=== PATIENT | female | born 1985 | race Hispanic/Latino ===

== ENCOUNTER 2017-06-05 23:08 | Emergency (ER) | payer MEDICAID, OTHER ==
[2017-06-05 23:52] VITALS: BMI 23.1
--- NOTE | 2017-06-06 00:15 | ED PDOC ---
Arrival/HPI - General Chief Complaint: Abdominal Pain Time Seen by Provider: 06/06/17 00:09 Historian: Patient - History of Present Illness Narrative History of Present Illness (Text): 06/06/17 00:13 Cricket Velez is a 32 year old female who presents to the Emergency department complaining of lower abdominal pain since yesterday. Patient states she recently had a miscarriage 2 weeks ago and was given medication by her OBGYN to assist with the miscarriage. Patient reports she was informed her Beta- HCG were trending down. Patient states yesterday she began experiencing worsening lower abdominal pressure but denies any vaginal bleeding or discharge. Patient denies any fever, chills, chest pain, shortness of breath, nausea, vomiting, diarrhea, headache, dizziness, or any other complaints. Patient states she has not taken any medication for pain. Time/Duration: Other (yesterday) Symptom Onset: Gradual Symptom Course: Worsening Quality: Pressure Activities at Onset: Light Context: Home Past Medical History - Provider Review Nursing Documentation Reviewed: Yes - Cardiac Hx Cardiac Disorders: No - Pulmonary Hx Respiratory Disorders: No - Neurological Hx Neurological Disorder: No - HEENT Hx HEENT Disorder: No - Renal Hx Renal Disorder: No - Endocrine/Metabolic Hx Endocrine Disorders: No - Hematological/Oncological Hx Blood Disorders: No - Integumentary Hx Dermatological Disorder: No - Musculoskeletal/Rheumatological Hx Musculoskeletal Disorders: No - Gastrointestinal Hx Gastrointestinal Disorders: No - Genitourinary/Gynecological Hx Genitourinary Disorders: No - Psychiatric Hx Psychophysiologic Disorder: No Hx Substance Use: No - Anesthesia Hx Anesthesia: No Family/Social History - Physician Review Nursing Documentation Reviewed: Yes Family/Social History: Unknown Family HX Smoking Status: Current Some Days Smoker Hx Alcohol Use: Yes Frequency of alcohol use: Socially Hx Substance Use: No Allergies/Home Meds Allergies/Adverse Reactions: Allergies No Known Allergies Allergy (Verified 06/05/17 23:52) Review of Systems - Physician Review All systems were reviewed & negative as marked: Yes - Review of Systems Constitutional: Normal. absent: Fevers Eyes: Normal ENT: Normal Respiratory: Normal. absent: SOB, Cough Cardiovascular: Normal. absent: Chest Pain Gastrointestinal: Abdominal Pain. absent: Diarrhea, Nausea, Vomiting Genitourinary Female: Normal. absent: Dysuria, Frequency, Hematuria, Urine Output Changes Musculoskeletal: Normal. absent: Back Pain, Neck Pain Skin: Normal. absent: Rash Neurological: Normal. absent: Headache, Dizziness Endocrine: Normal Hemo/Lymphatic: Normal Psychiatric: Normal Physical Exam Vital Signs Reviewed: Yes Vital Signs Temp Pulse Resp BP Pulse Ox 06/06/17 04:15 98.2 F 88 18 107/60 98 06/06/17 02:38 98.3 F 73 17 102/57 L 97 06/06/17 00:07 98.4 F 76 17 107/46 L 100 Temperature: Afebrile Blood Pressure: Normal Pulse: Regular Respiratory Rate: Normal Appearance: Positive for: Well-Appearing, Non-Toxic, Comfortable Pain Distress: None Mental Status: Positive for: Alert and Oriented X 3 - Systems Exam Head: Present: Atraumatic, Normocephalic Pupils: Present: PERRL Extroacular Muscles: Present: EOMI Conjunctiva: Present: Normal Mouth: Present: Moist Mucous Membranes Neck: Present: Normal Range of Motion Respiratory/Chest: Present: Clear to Auscultation, Good Air Exchange. No: Respiratory Distress, Accessory Muscle Use Cardiovascular: Present: Regular Rate and Rhythm, Normal S1, S2. No: Murmurs Abdomen: Present: Normal Bowel Sounds. No: Tenderness, Distention, Peritoneal Signs Back: Present: Normal Inspection Upper Extremity: Present: Normal Inspection. No: Cyanosis, Edema Lower Extremity: Present: Normal Inspection. No: Edema Neurological: Present: GCS=15, CN II-XII Intact, Speech Normal Skin: Present: Warm, Dry, Normal Color. No: Rashes Psychiatric: Present: Alert, Oriented x 3, Normal Insight, Normal Concentration Medical Decision Making ED Course and Treatment: 06/06/17 00:13 Impression: 32 year old female complaining of lower abdominal pressure since yesterday. Differential Diagnosis included but are not limited to: retained products of conception vs. ovarian cyst vs. UTI vs. abdominal pain Plan: -- US Transvaginal -- Labs, Beta-HCG -- UA -- Percocet -- Reassess and disposition Progress Notes: 06/06/17 03:45 Reviewed sono, US Transvaginal shows: Uterus/cervix: The uterus measures 8.5 x 4.2 x 6.1 cm. the uterus appears anteverted and possible retroflexed as seen on image 4 series 1. The endometrial stripe measures 9 mm. No myometrial mass. Right ovary: There is possible involuting right ovarian cyst measuring 3.6 x 2.1 x 3.0 cm. The right ovary measures 5.5 x 3.5 x 4.5 cm. Duplex assessment demonstrates presence of color Doppler signal and spectral Doppler waveform in right ovary. No torsion. Left ovary: The left ovary measures 3.4 x 2.1 x 3.3 cm. Duplex assessment demonstrates presence of color Doppler signal and spectral Doppler waveform in left ovary. No torsion. Free fluid: Small to moderate amount of free pelvic fluid. Bladder: Partially distended bladder. IMPRESSION: 1. There is possible involuting right ovarian cyst measuring 3.6 x 2.1 x 3.0 cm. this can represent functional cyst in view of patient's premenopausal status.Correlation with clinical evaluation and further workup or followup as recommended by patient's clinical data. 2. Small to moderate amount of free pelvic fluid. 3. The endometrial stripe measures 9 mm. No vascular flow was documented in the endometrium. Correlation with clinical data is recommended if retained products of conception are clinically suspected. 06/06/17 03:59 On reevaluation the patient feels better and is in no acute distress. I have discussed the results and plan with the patient, who expresses understanding. Patient given the opportunity to ask question, all questions were answered and there is agreement with the plan to discharge the patient home. Patient is stable for discharge. Patient was instructed to follow up with physician/clinic in 1-2 days or return if symptoms persist/worsen or new concerning symptoms arise. - Lab Interpretations Lab Results: 06/06/17 00:40 06/06/17 00:40 Lab Results 06/06/17 00:40: Beta HCG, Quant 453.13 H 06/06/17 00:40: Sodium 138, Potassium 3.9, Chloride 103, Carbon Dioxide 27, Anion Gap 12, BUN 15, Creatinine 0.8, Est GFR ( Amer) > 60, Est GFR (Non- Af Amer) > 60, Random Glucose 116 H, Calcium 9.6, Total Bilirubin 0.4, AST 42 H , ALT 71 H, Alkaline Phosphatase 64, Total Protein 7.5, Albumin 4.5, Globulin 3.0, Albumin/Globulin Ratio 1.5 06/06/17 00:40: WBC 14.2 H, RBC 4.34, Hgb 13.6, Hct 39.5, MCV 91.0, MCH 31.3, MCHC 34.4, RDW 12.3, Plt Count 296, MPV 9.1, Gran % 78.7 H, Lymph % (Auto) 14.0 L, [place] % (Auto) 4.4, Eos % (Auto) 2.6, Baso % (Auto) 0.3, Gran # 11.19 H, Lymph # 2.0, [place] # 0.6, Eos # 0.4, Baso # 0.04 06/06/17 00:05: Urine Color Yellow, Urine Appearance Sl cloudy, Urine pH 6.0, Ur Specific [place] >= 1.030, Urine Protein 30 H, Urine Glucose (UA) Negative, Urine Ketones Negative, Urine Blood Negative, Urine Nitrate Negative, Urine Bilirubin Negative, Urine Urobilinogen 0.2, Ur Leukocyte Esterase Negative, Urine RBC 0 - 2, Urine WBC 2 - 5, Ur Epithelial Cells 1 - 3, Urine Bacteria Small I have reviewed the lab results: Yes - RAD Interpretation Radiology Orders: 06/06/17 00:16 TRANSVAGINAL [US] 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 No Sleep Is patient sleeping during reassessment? No Presence of Pain Presence of Pain Yes Pain Scale Used Pain Scale Used Numeric Location Upper or Lower Lower Pain Location Body Site Abdomen Description Description Constant Intensity of Pain at present 8 Pain Behavior Facial Grimacing Aggravating Factors Changing Position Alleviating Factors/Management Position Change Techniques Alleviating Factors Medication - Scribe Statement The provider has reviewed the documentation as recorded by the Catiaibwang Pacheco Provider Scribe Attestation: All medical record entries made by the Scribe were at my direction and personally dictated by me. I have reviewed the chart and agree that the record accurately reflects my personal performance of the history, physical exam, medical decision making, and the department course for this patient. I have also personally directed, reviewed, and agree with the discharge instructions and disposition. Disposition/Present on Arrival - Present on Arrival Any Indicators Present on Arrival: No History of DVT/PE: No History of Uncontrolled Diabetes: No Urinary Catheter: No History of Decub. Ulcer: No History Surgical Site Infection Following: None - Disposition Have Diagnosis and Disposition been Completed?: Yes Diagnosis: Retained products of conception, Ovarian cyst Disposition: HOME/ ROUTINE Disposition Time: 04:00 Condition: GOOD Discharge Instructions (ExitCare): Ovarian Cyst (ED), Dilation and Curettage ( GEN) Prescriptions: Tramadol HCl [Ultram] 50 mg PO QID #8 tab Referrals: Marely Winston MD [Primary Care Provider] - Follow up with primary Forms: [facility] ([place]ian)
[2017-06-06] MEDS ORDERED: Oxycodone/Acetaminophen 5/325 mg Tab PO STA (00:16)
[2017-06-06 00:47] LABS: URINE BILIRUBIN NEGATIVE (NEGATIVE); URINE BLOOD NEGATIVE (NEGATIVE); URINE GLUCOSE (UA) NEGATIVE (NEGATIVE); URINE KETONE NEGATIVE (NEGATIVE); URINE LEUKOCYTE ESTERASE NEGATIVE Leu/uL (NEGATIVE); URINE PROTEIN 30 mg/dL (<30 mg/dL); URINE UROBILINOGEN 0.2 E.U./dL (<1 E.U./dL)
[2017-06-06 00:51] LABS: BASO # 0.04 K/mm3 (0.0-2.0); BASO % 0.3 % (0.0-3.0); EOS # 0.4 (0.0-0.7); EOS % 2.6 % (1.5-5.0); GRAN # 11.19 (1.4-6.5); GRAN % 78.7 % (50.0-68.0); HEMATOCRIT 39.5 % (36.0-48.0); MEAN CORPUSCULAR HEMOGLOBIN 31.3 pg (25.0-35.0); MEAN CORPUSCULAR HGB CONC 34.4 g/dl (31.0-37.0); MEAN PLATELET VOLUME 9.1 fl (7.0-11.0); MONO # 0.6 (0.1-0.6); MONO % 4.4 % (1.0-6.0); RED CELL DISTRIBUTION WIDTH 12.3 % (11.5-14.5); WHITE BLOOD COUNT 14.2 10^3/ul (4.5-11.0)
[2017-06-06 00:58] LABS: URINE APPEARANCE SL CLOUDY (CLEAR); URINE COLOR YELLOW (YELLOW)
[2017-06-06 01:00] LABS: ALB/GLOB RATIO 1.5 (1.1-1.8); ALKALINE PHOSPHATASE 64 U/L (38-126); ALT/SGPT 71 U/L (7-56); AST/SGOT 42 U/L (14-36); BILIRUBIN,TOTAL 0.4 mg/dL (0.2-1.3); BLOOD UREA NITROGEN 15 mg/dL (7-21); CALCIUM 9.6 mg/dL (8.4-10.5); CARBON DIOXIDE 27 mmol/L (21-33); CHLORIDE 103 mmol/L (98-107); GFR AFRICAN-AMERICAN > 60; GLUCOSE,RANDOM 116 mg/dL (70-110); POTASSIUM 3.9 mmol/L (3.6-5.0); SODIUM 138 mmol/L (132-148); TOTAL PROTEIN 7.5 g/dL (5.8-8.3)
[2017-06-06 01:00] LABS: URINE RBC 0 - 2 /hpf (0-2)
[2017-06-06 01:01] LABS: URINE BACTERIA SMALL (NEG)
--- NOTE | 2017-06-06 03:28 | US ---
EXAM: US Duplex Arterial/Venous of the Pelvis, Complete CLINICAL HISTORY: 32 years old, female; Pain; Pelvic pain; Additional info: R/O retained products TECHNIQUE: Real-time duplex ultrasound scan of the arterial and venous flow of the pelvis with color Doppler flow and spectral waveform analysis. Transabdominal and endovaginal images are submitted.Grayscale, color and spectral pulse Doppler images are submitted.A duplex/doppler ultrasound was performed specifically BOTH COLOR FLOW AND spectral Doppler analysis (waveforms) were performed and interpreted. COMPARISON: No relevant prior studies available. FINDINGS: Uterus/cervix: The uterus measures 8.5 x 4.2 x 6.1 cm. the uterus appears anteverted and possible retroflexed as seen on image 4 series 1. The endometrial stripe measures 9 mm. No myometrial mass. Right ovary: There is possible involuting right ovarian cyst measuring 3.6 x 2.1 x 3.0 cm. The right ovary measures 5.5 x 3.5 x 4.5 cm. Duplex assessment demonstrates presence of color Doppler signal and spectral Doppler waveform in right ovary. No torsion. Left ovary: The left ovary measures 3.4 x 2.1 x 3.3 cm. Duplex assessment demonstrates presence of color Doppler signal and spectral Doppler waveform in left ovary. No torsion. Free fluid: Small to moderate amount of free pelvic fluid. Bladder: Partially distended bladder. IMPRESSION: 1. There is possible involuting right ovarian cyst measuring 3.6 x 2.1 x 3.0 cm. this can represent functional cyst in view of patient's premenopausal status.Correlation with clinical evaluation and further workup or followup as recommended by patient's clinical data. 2. Small to moderate amount of free pelvic fluid. 3. The endometrial stripe measures 9 mm. No vascular flow was documented in the endometrium. Correlation with clinical data is recommended if retained products of conception are clinically suspected.
[2017-06-06 04:18] VITALS: BP 107/60; PULSE 88; RESP 18; TEMP 98.2; O2SAT 98
== END 2017-06-06 04:15 | disposition home or self-care (01) ==
LOC: ED 23:08
DX: O02.1 Missed abortion (principal); N83.201 Unspecified ovarian cyst, right side

== ENCOUNTER 2017-10-07 10:22 | Emergency (ER) | payer OTHER ==
[2017-10-07 10:24] VITALS: BMI 23.1
[2017-10-07 10:33] VITALS: TEMP 97.8
[2017-10-07] MEDS ORDERED: Sodium Chloride 0.9% 1,000 ML IV STA (10:40)
--- NOTE | 2017-10-07 10:52 | ED PDOC ---
Arrival/HPI - General Chief Complaint: Abdominal Pain Time Seen by Provider: 10/07/17 10:25 Historian: Patient - History of Present Illness Narrative History of Present Illness (Text): 10/07/17 10:42 32-year-old female presents today with suprapubic pain that started this morning after urinating. Patient states after urinating she developed a sharp stabbing lower abdominal pain. She denies vomiting. Denies diarrhea or constipation. Patient complaining of nausea. Patient denies states she has a Mirena in place. Denies chest pain or shortness of breath. Denies fevers or chills. Denies dysuria or urinary frequency or urgency. pt denies vaginal bleeding or vaginal discharge. Time/Duration: Other (This morning) Symptom Onset: Sudden Past Medical History - Provider Review Nursing Documentation Reviewed: Yes - Travel History Have you recently traveled outside [place] w/in the past 3 mons?: No - Infectious Disease Hx of Infectious Diseases: None - Tetanus Immunization Tetanus Immunization: Unknown - Cardiac Hx Cardiac Disorders: No - Pulmonary Hx Respiratory Disorders: No - Neurological Hx Neurological Disorder: No - HEENT Hx HEENT Disorder: No - Renal Hx Renal Disorder: No - Endocrine/Metabolic Hx Endocrine Disorders: No - Hematological/Oncological Hx Blood Disorders: No - Integumentary Hx Dermatological Disorder: No - Musculoskeletal/Rheumatological Hx Musculoskeletal Disorders: No - Gastrointestinal Hx Gastrointestinal Disorders: No - Genitourinary/Gynecological Hx Genitourinary Disorders: No - Psychiatric Hx Psychophysiologic Disorder: No Hx Substance Use: No - Anesthesia Hx Anesthesia: No Hx Anesthesia Reactions: No Hx Malignant Hyperthermia: No Family/Social History - Physician Review Nursing Documentation Reviewed: Yes Family/Social History: Unknown Family HX Smoking Status: Current Some Days Smoker Hx Alcohol Use: Yes Hx Substance Use: No Allergies/Home Meds Allergies/Adverse Reactions: Allergies pcn Adverse Reaction (Uncoded 10/07/17 10:33) RASH Home Medications: Home Meds Medication Instructions Recorded Confirmed Levonorgestrel [Mirena] 1 unit ITR .5YEAR 10/07/17 10/07/17 Review of Systems - Review of Systems Constitutional: absent: Fatigue, Fevers Respiratory: absent: SOB, Cough Cardiovascular: absent: Chest Pain, Palpitations Gastrointestinal: Abdominal Pain, Nausea. absent: Constipation, Diarrhea, Vomiting Genitourinary Female: absent: Dysuria, Frequency, Hematuria, Vaginal Bleeding, Vaginal Discharge Musculoskeletal: Back Pain. absent: Arthralgias, Neck Pain Skin: absent: Rash, Pruritis Neurological: absent: Headache, Dizziness Psychiatric: absent: Anxiety, Depression Physical Exam Vital Signs Reviewed: Yes Vital Signs Temp Pulse Resp BP Pulse Ox 10/07/17 15:12 97.8 F 77 16 111/69 99 10/07/17 13:23 88 18 124/79 99 10/07/17 11:01 80 18 104/68 98 10/07/17 10:26 97.8 F 85 19 88/53 L 96 10/07/17 10:24 108/82 Temperature: Afebrile Blood Pressure: Normal Pulse: Regular Respiratory Rate: Normal Appearance: Positive for: Well-Appearing, Non-Toxic, Comfortable Pain Distress: None Mental Status: Positive for: Alert and Oriented X 3 - Systems Exam Head: Present: Atraumatic Mouth: Present: Moist Mucous Membranes Neck: Present: Normal Range of Motion Respiratory/Chest: Present: Clear to Auscultation, Good Air Exchange. No: Respiratory Distress, Accessory Muscle Use Cardiovascular: Present: Regular Rate and Rhythm, Normal S1, S2. No: Murmurs Abdomen: Present: Tenderness (RLQ, suprapubic and LLQ tenderness. ), Normal Bowel Sounds, Guarding. No: Distention, Rebound Genitourinary/Pelvic Exam: Present: Normal External Genitalia, Vaginal Discharge , Adenexal Tenderness, Cervical os Closed, Other (mild tenderness of cervix. chaparoned by robert MOSER. ). No: Vaginal Bleeding, Vaginal Lesions, Odor Back: Present: Normal Inspection. No: CVA Tenderness, Midline Tenderness, Paraspinal Tenderness Upper Extremity: Present: Normal ROM Lower Extremity: Present: Normal ROM Neurological: Present: GCS=15, Speech Normal Skin: Present: Warm, Dry, Normal Color. No: Rashes Psychiatric: Present: Alert, Oriented x 3 Medical Decision Making ED Course and Treatment: 10/07/17 10:54 Patient is nontoxic well appearing with stable vital signs presenting with lower abdominal pain CBC wbc; 11.5 CMP: wnl Lipase: wnl Urinalysis: trace leukocytes, urine culture pending. Ultrasound:FINDINGS: UTERUS: Measures 8.2 x 4.2 x 6.7 cm. Normal in size and appearance. No fibroid or other mass lesion seen. Retroverted ENDOMETRIUM: Measures 13 mm in diameter. Unremarkable. CERVIX: No cervical abnormality identified. RIGHT OVARY: Measures 5.6 x 4.4 x 4.3 cm. There is a large complex cystic lesion in the right ovary measuring 3.9 x 3.5 x 2.8 cm. Normal flow. LEFT OVARY: Measures 2.6 x 2.6 x 2.9 cm. No solid mass. Normal flow. FREE FLUID: No significant free fluid noted. OTHER FINDINGS:None. IMPRESSION: Complex cystic lesion in the right ovary. Follow-up recommended pt given Toradol for pain: NS iv bolus CAT scan: FINDINGS: LOWER THORAX: Unremarkable. LIVER: Unremarkable. No gross lesion or ductal dilatation. GALLBLADDER AND BILE DUCTS: Unremarkable. PANCREAS: Unremarkable. No gross lesion or ductal dilatation. SPLEEN: Unremarkable. ADRENALS: Unremarkable. No mass. KIDNEYS AND URETERS: Unremarkable. No hydronephrosis. No solid mass. VASCULATURE: Unremarkable. No aortic aneurysm. BOWEL: Unremarkable. No obstruction. No gross mural thickening. APPENDIX: Normal appendix. PERITONEUM: Unremarkable. No free fluid. No free air. LYMPH NODES: Unremarkable. No enlarged lymph nodes. BLADDER: Unremarkable. REPRODUCTIVE: There is a large right adnexal cyst measuring 3.2 x 4.3 cm. This was also demonstrated on ultrasound. There is a large amount of fluid in the cul-de-sac consistent with recent cyst rupture. An IUD is present within the endometrial canal. BONES: No acute fracture. OTHER FINDINGS: None. IMPRESSION: Large right adnexal cyst measuring 3.2 x 4.3 cm. There is a large amount of fluid in the cul-de-sac consistent with recent cyst rupture. Patient reassessment:pt non toxic well appearing; no distress. stable vitals. pt states shes feeling much better. vitals stable. pt with large ovarian cyst with recent rupture also with mild cervical tenderness; minimal white discharge. will send gc/chlamydia will treat with doxycycline and advised f/u with BACK FACER. Discussed all results with patient in depth. 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 Chest importance of immediate return is symptoms worsen persist or if new concerning symptoms develop. Patient verbalizes understanding of discharge instructions and need for immediate followup. all aspects of this case were discussed the attending of record. Impression: Abdominal pain, ovarian cyst, UTI Motrin every 6 hours as needed for pain doxycycline 1 tablet twice daily x 10 days increase fluids. Follow up with primary care physician within the next 2 days Follow up with the BACK FACER within the next 2 days. Return immediately if symptoms worsen persist or if new symptoms develop: High fevers, increasing pain, vomiting, diarrhea or any other concerning symptoms develop 10/07/17 17:48 Reassessment Condition: Re-examined, Improved (abdomen soft, non tender, ) - Lab Interpretations Lab Results: 10/07/17 11:00 10/07/17 11:00 Lab Results 10/07/17 12:30: Urine Color Straw, Urine Appearance Clear, Urine pH 6.5, Ur Specific [place] <= 1.005, Urine Protein Negative, Urine Glucose (UA) Negative, Urine Ketones Negative, Urine Blood Negative, Urine Nitrate Negative, Urine Bilirubin Negative, Urine Urobilinogen 0.2, Ur Leukocyte Esterase Trace H, Urine RBC Negative, Urine WBC 0 - 2, Ur Epithelial Cells 4 - 5, Urine Bacteria Few 10/07/17 11:00: WBC 11.5 H, RBC 4.66, Hgb 14.5, Hct 42.8, MCV 91.8, MCH 31.1, MCHC 33.9, RDW 12.7, Plt Count 285, MPV 9.7, Gran % 77.8 H, Lymph % (Auto) 14.8 L, [place] % (Auto) 4.3, Eos % (Auto) 2.8, Baso % (Auto) 0.3, Gran # 8.97 H, Lymph # (Auto) 1.7, [place] # (Auto) 0.5, Eos # (Auto) 0.3, Baso # (Auto) 0.03 10/07/17 11:00: Sodium 140, Potassium 4.5, Chloride 105, Carbon Dioxide 26, Anion Gap 13, BUN 11, Creatinine 0.6 L, Est GFR ( Amer) > 60, Est GFR ( Non-Af Amer) > 60, Random Glucose 107, Calcium 9.7, Total Bilirubin 0.4, AST 22 , ALT 35, Alkaline Phosphatase 66, Total Protein 7.7, Albumin 4.5, Globulin 3.2 , Albumin/Globulin Ratio 1.4, Lipase 60 - RAD Interpretation Radiology Orders: 10/07/17 10:53 TRANSVAGINAL [US] Stat 03/03/18 12:24 ABD & PELVIS IV CONTRAST ONLY [CT] Stat - Medication Orders Current Medication Orders: Discontinued Medications Doxycycline Hyclate (Doryx) 100 mg PO STAT STA PRN Reason: Protocol Stop: 10/07/17 14:52 Last Admin: 10/07/17 15:07 Dose: 100 mg Sodium Chloride (Sodium Chloride 0.9%) 1,000 mls @ 999 mls/hr IV .Q1H1M STA Stop: 10/07/17 11:40 Last Admin: 10/07/17 11:12 Dose: 999 mls/hr eMAR Start Stop Document 10/07/17 11:12 SF (Rec: 10/07/17 11:12 SF [facility] [id number]) Intravenous Solution Start Date 10/07/17 Start Time 11:12 End Date 10/07/17 End time 12:13 Total Infusion Time 61 Ketorolac Tromethamine (Toradol) 30 mg IVP STAT STA Stop: 10/07/17 12:42 Last Admin: 10/07/17 12:55 Dose: 30 mg MAR Pain Assessment Document 10/07/17 12:55 MS (Rec: 10/07/17 12:56 MS [id number]) Pain Reassessment Is this a pain reassessment? No Sleep Is patient sleeping during reassessment? No Presence of Pain Presence of Pain Yes Pain Scale Used Pain Scale Used Numeric Location Pain Location Body Site Abdomen Description Description Intermittent Pain Behavior Guarding IVP Administration Document 10/07/17 12:55 MS (Rec: 10/07/17 12:56 MS [id number]) Charges for Administration # of IVP Administrations 1 Disposition/Present on Arrival - Present on Arrival Any Indicators Present on Arrival: No History of DVT/PE: No History of Uncontrolled Diabetes: No Urinary Catheter: No History of Decub. Ulcer: No History Surgical Site Infection Following: None - Disposition Have Diagnosis and Disposition been Completed?: Yes Diagnosis: Abdominal pain, Ovarian cyst, Urinary tract infection Disposition: HOME/ ROUTINE Disposition Time: 15:02 Patient Plan: Discharge Condition: GOOD Discharge Instructions (ExitCare): Ovarian Cysts, Acute Abdomen (Belly Pain), Adult (DC) Additional Instructions: Motrin every 6 hours as needed for pain doxycycline 1 tablet twice daily x 10 days increase fluids. Follow up with primary care physician within the next 2 days Follow up with the BACK FACER within the next 2 days. Return immediately if symptoms worsen persist or if new symptoms develop: High fevers, increasing pain, vomiting, diarrhea or any other concerning symptoms develop Prescriptions: Doxycycline Hyclate 100 mg PO BID #20 capsule Ibuprofen [Motrin] 600 mg PO Q6H PRN #20 tab PRN Reason: pain/fever reduction Referrals: Carolina Barahona MD [Staff Provider] - Follow up with primary Cuba Nichols MD [Staff Provider] - Follow up with primary Forms: [facility] ([place]), WORK NOTE
[2017-10-07 11:32] LABS: BASO # 0.03 K/mm3 (0.0-2.0); BASO % 0.3 % (0.0-3.0); EOS # 0.3 (0.0-0.7); EOS % 2.8 % (1.5-5.0); GRAN # 8.97 (1.4-6.5); GRAN % 77.8 % (50.0-68.0); HEMOGLOBIN 14.5 g/dL (12.0-16.0); LYMPH # 1.7 (1.2-3.4); LYMPH % 14.8 % (22.0-35.0); MEAN CELL VOLUME 91.8 fl (80.0-105.0); MEAN CORPUSCULAR HEMOGLOBIN 31.1 pg (25.0-35.0); MEAN CORPUSCULAR HGB CONC 33.9 g/dl (31.0-37.0); MEAN PLATELET VOLUME 9.7 fl (7.0-11.0); MONO # 0.5 (0.1-0.6); MONO % 4.3 % (1.0-6.0); RBC 4.66 10^6/uL (3.5-6.1); RED CELL DISTRIBUTION WIDTH 12.7 % (11.5-14.5); WHITE BLOOD COUNT 11.5 10^3/ul (4.5-11.0)
[2017-10-07 11:41] LABS: ALB/GLOB RATIO 1.4 (1.1-1.8); ALBUMIN 4.5 g/dL (3.0-4.8); ALT/SGPT 35 U/L (7-56); AST/SGOT 22 U/L (14-36); BLOOD UREA NITROGEN 11 mg/dL (7-21); CALCIUM 9.7 mg/dL (8.4-10.5); GFR AFRICAN-AMERICAN > 60; GFR NON-AFRICAN AMERICAN > 60; LIPASE 60 U/L (23-300)
[2017-10-07 12:41] LABS: PH,URINE 6.5 (4.7-8.0); URINE BILIRUBIN NEGATIVE (NEGATIVE); URINE BLOOD NEGATIVE (NEGATIVE); URINE GLUCOSE (UA) NEGATIVE (NEGATIVE); URINE LEUKOCYTE ESTERASE TRACE Leu/uL (NEGATIVE); URINE NITRATE NEGATIVE (NEGATIVE); URINE PROTEIN NEGATIVE mg/dL (<30 mg/dL); URINE UROBILINOGEN 0.2 E.U./dL (<1 E.U./dL)
[2017-10-07 12:42] LABS: URINE APPEARANCE CLEAR (CLEAR); URINE COLOR STRAW (YELLOW)
[2017-10-07 12:52] LABS: URINE BACTERIA FEW (NEG); URINE RBC NEGATIVE /hpf (0-2); URINE WBC 0 - 2 /hpf (0-6)
--- NOTE | 2017-10-07 12:56 | US ---
HISTORY: lower abd pain COMPARISON: None available. TECHNIQUE: Transvaginal FINDINGS: UTERUS: Measures 8.2 x 4.2 x 6.7 cm. Normal in size and appearance. No fibroid or other mass lesion seen. Retroverted ENDOMETRIUM: Measures 13 mm in diameter. Unremarkable. CERVIX: No cervical abnormality identified. RIGHT OVARY: Measures 5.6 x 4.4 x 4.3 cm. There is a large complex cystic lesion in the right ovary measuring 3.9 x 3.5 x 2.8 cm. Normal flow. LEFT OVARY: Measures 2.6 x 2.6 x 2.9 cm. No solid mass. Normal flow. FREE FLUID: No significant free fluid noted. OTHER FINDINGS: None. IMPRESSION: Complex cystic lesion in the right ovary. Follow-up recommended
[2017-10-07 13:24] VITALS: O2SAT 99
[2017-10-07] MEDS ORDERED: Iohexol 350 MG/100 ML VIAL ONE (13:29)
--- NOTE | 2017-10-07 13:41 | CT ---
PROCEDURE: CT Abdomen and Pelvis with contrast HISTORY: abd pain COMPARISON: Ultrasound from the same day as well as ultrasound from 06/06/2017 TECHNIQUE: Contrast dose: 100 cc of Omni 350 Radiation dose: Total exam DLP = 301 mGy-cm. This CT exam was performed using one or more of the following dose reduction techniques: Automated exposure control, adjustment of the mA and/or kV according to patient size, and/or use of iterative reconstruction technique. FINDINGS: LOWER THORAX: Unremarkable. LIVER: Unremarkable. No gross lesion or ductal dilatation. GALLBLADDER AND BILE DUCTS: Unremarkable. PANCREAS: Unremarkable. No gross lesion or ductal dilatation. SPLEEN: Unremarkable. ADRENALS: Unremarkable. No mass. KIDNEYS AND URETERS: Unremarkable. No hydronephrosis. No solid mass. VASCULATURE: Unremarkable. No aortic aneurysm. BOWEL: Unremarkable. No obstruction. No gross mural thickening. APPENDIX: Normal appendix. PERITONEUM: Unremarkable. No free fluid. No free air. LYMPH NODES: Unremarkable. No enlarged lymph nodes. BLADDER: Unremarkable. REPRODUCTIVE: There is a large right adnexal cyst measuring 3.2 x 4.3 cm. This was also demonstrated on ultrasound. There is a large amount of fluid in the cul-de-sac consistent with recent cyst rupture. An IUD is present within the endometrial canal. BONES: No acute fracture. OTHER FINDINGS: None. IMPRESSION: Large right adnexal cyst measuring 3.2 x 4.3 cm. There is a large amount of fluid in the cul-de-sac consistent with recent cyst rupture.
[2017-10-07 15:13] VITALS: BP 111/69; PULSE 77; RESP 16
== END 2017-10-07 15:12 | disposition home or self-care (01) ==
LOC: ED 10:22
DX: N39.0 Urinary tract infection, site not specified (principal); N83.209 Unspecified ovarian cyst, unspecified side
CPT/HCPCS: 74177; 76830; 80053; 81001; 83690; 85025; 87086; 87491; 87591; 96361; 96374; 99285; J1885; J7040; Q9967